=== PATIENT | male | born 1970 | race Caucasian/White ===

== ENCOUNTER → 2017-03-19 | Outpatient (CLI) | payer OTHER ==
[2013-06-02 10:30] VITALS: BP 201/130
== END ==
LOC: LAB 08:51
DX: E11.9 Type 2 diabetes mellitus without complications (principal); I10 Essential (primary) hypertension

== ENCOUNTER → 2018-03-11 | Outpatient (CLI) | payer OTHER ==
[2013-06-02 10:30] VITALS: BP 201/130
[2018-03-11 09:22] LABS: ALBUMIN 4.1 g/dL (3.5-5.0); BUN/CREATININE RATIO 11.5 (6.0-26.0); CALCIUM 9.3 mg/dL (8.4-10.2); POTASSIUM 4.5 mmol/L (3.6-5.0); TOTAL BILIRUBIN 0.6 mg/dL (0.2-1.3); TOTAL PROTEIN 7.9 g/dL (6.3-8.2)
== END ==
LOC: LAB 08:55
PROVIDERS: Family Medicine
DX: E11.9 Type 2 diabetes mellitus without complications (principal); I10 Essential (primary) hypertension

== ENCOUNTER → 2018-09-23 | Outpatient (CLI) | payer OTHER ==
[2013-06-02 10:30] VITALS: BP 201/130
== END ==
LOC: LAB 09:18
PROVIDERS: Family Medicine
DX: E11.9 Type 2 diabetes mellitus without complications (principal); E78.5 Hyperlipidemia, unspecified; R53.83 Other fatigue; T78.3XXA Angioneurotic edema, initial encounter; Z91.018 Allergy to other foods

== ENCOUNTER 2018-12-11 09:48 | Emergency (ER) | payer OTHER ==
[2018-12-11 10:23] LABS: EOS # 0.4 (0.04-0.40); HEMATOCRIT 42.9 % (42.0-52.0); HEMOGLOBIN 15.4 g/dL (13.5-18.0); LYMPH# 2.9 (1.50-4.00); MEAN CELL VOLUME 90 fl (78-100); MEAN CORPUSCULAR HEMOGLOBIN 32 pg (27-31); MEAN CORPUSCULAR HGB CONC 36 g/dL (33-37); MEAN PLATELET VOLUME 9.2 fl (7.4-10.4); MONO # 0.9 (0.20-0.80); NEU # 3.5 (1.40-6.50); PLATELET COUNT 245 K/mm3 (130-400); RED BLOOD COUNT 4.76 M/mm3 (4.20-5.60); RED CELL DISTRIBUTION WIDTH 12.6 % (11.5-14.5); WHITE BLOOD COUNT 7.8 K/mm3 (4.8-10.8)
[2018-12-11] MEDS ORDERED: GLUCOPHAGE1000 MG PO (10:24)
[2018-12-11] MEDS ORDERED: HYGROTON 2525 MG/TAB PO (10:24)
[2018-12-11] MEDS ORDERED: AMLODIPINE BESYL5 MG PO (10:24)
[2018-12-11] MEDS ORDERED: PROTONIX TR40 M1 PO (10:24)
[2018-12-11] MEDS ORDERED: METOPROLOL SUC100 M1 PO (10:24)
[2018-12-11 10:30] LABS: EOS % 5.5 % (0.0-4.0)
[2018-12-11 10:34] LABS: ALBUMIN 4.7 g/dL (3.5-5.0); CALCIUM 9.3 mg/dL (8.4-10.2); TOTAL PROTEIN 8.1 g/dL (6.3-8.2)
[2018-12-11 10:42] LABS: POTASSIUM 2.4 mmol/L (3.6-5.0)
[2018-12-11 10:48] LABS: CKMB ISOENZYME 3.5 ng/mL (0.6-3.5); TROPONIN-I < 0.03 ng/mL (0.00-0.06)
[2018-12-11 10:49] LABS: D-DIMER 0.27 mg/L FEU (0.15-0.50)
[2018-12-11 11:51] VITALS: BP 156/103
== END 2018-12-11 12:12 | disposition short-term general hospital (02) ==
LOC: ED 09:48
PROVIDERS: Physician Assistant
DX: E87.6 Hypokalemia (principal); R07.89 Other chest pain; K21.9 Gastro-esophageal reflux disease without esophagitis; E11.9 Type 2 diabetes mellitus without complications; I10 Essential (primary) hypertension; E78.5 Hyperlipidemia, unspecified; Z88.5 Allergy status to narcotic agent; Z91.018 Allergy to other foods; Z88.8 Allergy status to other drugs, medicaments and biological substances; Z98.890 Other specified postprocedural states
CPT/HCPCS: J3480

== ENCOUNTER → 2018-12-18 | Outpatient (CLI) | payer OTHER ==
[2018-12-11 11:51] VITALS: BP 156/103
[~2018-12-18] MED LIST: AMLODIPINE BESYL5 MG PO; GLUCOPHAGE1000 MG PO; HYGROTON 2525 MG/TAB PO; METOPROLOL SUC100 M1 PO; PROTONIX TR40 M1 PO
== END ==
LOC: RAD 11:46
DX: M19.012 Primary osteoarthritis, left shoulder (principal); M75.32 Calcific tendinitis of left shoulder; M54.2 Cervicalgia; R20.2 Paresthesia of skin

== ENCOUNTER 2018-12-23 08:53 | Outpatient (RCR) | payer OTHER | END 2018-12-23 09:00 | disposition home or self-care (01) | LOC: PT 08:53 | DX: M19.012 Primary osteoarthritis, left shoulder (principal); M75.32 Calcific tendinitis of left shoulder; M54.2 Cervicalgia; R29.898 Other symptoms and signs involving the musculoskeletal system; R20.2 Paresthesia of skin ==

== ENCOUNTER → 2018-12-23 | Outpatient (CLI) | payer OTHER ==
[2018-12-11 11:51] VITALS: BP 156/103
[2018-12-23 10:49] LABS: CALCIUM 9.3 mg/dL (8.4-10.2); POTASSIUM 4.9 mmol/L (3.6-5.0)
[2018-12-24 17:34] LABS: COMPLEMENT-C4 32 mg/dL (18-55)
== END ==
LOC: LAB 10:11
PROVIDERS: Allergy & Immunology
DX: T78.3XXD Angioneurotic edema, subsequent encounter (principal); E11.9 Type 2 diabetes mellitus without complications; R20.2 Paresthesia of skin; E87.6 Hypokalemia; E78.5 Hyperlipidemia, unspecified

== ENCOUNTER → 2019-02-10 | Outpatient (CLI) | payer OTHER ==
[2019-02-10 09:13] LABS: ALBUMIN 4.7 g/dL (3.5-5.0); POTASSIUM 4.3 mmol/L (3.6-5.0); TOTAL PROTEIN 7.8 g/dL (6.3-8.2)
== END ==
LOC: LAB 08:49
PROVIDERS: Family Medicine
DX: S43.432A Superior glenoid labrum lesion of left shoulder, initial encounter (principal); I10 Essential (primary) hypertension; E11.9 Type 2 diabetes mellitus without complications

== ENCOUNTER → 2019-04-14 | Outpatient (CLI) | payer OTHER | LOC: LAB 10:48 | DX: E11.9 Type 2 diabetes mellitus without complications (principal) ==

== ENCOUNTER → 2019-11-03 | Outpatient (CLI) | payer OTHER ==
[2019-11-03 09:35] LABS: HEMATOCRIT 46.7 % (42.0-52.0); HEMOGLOBIN 15.7 g/dL (13.5-18.0); MEAN CELL VOLUME 90 fl (78-100); MEAN CORPUSCULAR HEMOGLOBIN 30 pg (27-31); MEAN CORPUSCULAR HGB CONC 34 g/dL (33-37); MEAN PLATELET VOLUME 8.7 fl (7.4-10.4); PLATELET COUNT 228 K/mm3 (130-400); RED BLOOD COUNT 5.22 M/mm3 (4.20-5.60); RED CELL DISTRIBUTION WIDTH 13.2 % (11.5-14.5); WHITE BLOOD COUNT 6.6 K/mm3 (4.8-10.8)
[2019-11-03 09:38] LABS: POTASSIUM 4.4 mmol/L (3.5-5.1)
[2019-11-03 09:39] LABS: ALBUMIN 4.5 g/dL (3.5-5.0)
[2019-11-03 09:40] LABS: CALCIUM 9.8 mg/dL (8.3-10.5)
[2019-11-03 09:41] LABS: TOTAL PROTEIN 7.7 g/dL (6.4-8.3)
[2019-11-03 09:43] LABS: TOTAL BILIRUBIN 1.2 mg/dL (0.2-1.2)
[2019-11-03 09:48] LABS: LYMPHOCYTE 43 % (20-51); MONOCYTE 9 % (3-10); NEUTROPHILS 43 % (42-75)
== END ==
LOC: LAB 09:18
PROVIDERS: Family Medicine
DX: Z12.5 Encounter for screening for malignant neoplasm of prostate (principal); I10 Essential (primary) hypertension; E11.9 Type 2 diabetes mellitus without complications; E78.2 Mixed hyperlipidemia

== ENCOUNTER → 2021-01-24 | Outpatient (CLI) | payer OTHER ==
[2021-01-24 09:34] LABS: EOS # 0.3 (0.04-0.40); EOS % 4.3 % (0.0-4.0); HEMATOCRIT 46.5 % (42.0-52.0); HEMOGLOBIN 15.5 g/dL (13.5-18.0); LYMPH# 2.4 (1.50-4.00); MEAN CELL VOLUME 91 fl (78-100); MEAN CORPUSCULAR HEMOGLOBIN 30 pg (27-31); MEAN CORPUSCULAR HGB CONC 33 g/dL (33-37); MEAN PLATELET VOLUME 8.8 fl (7.4-10.4); MONO # 0.8 (0.20-0.80); NEU # 3.3 (1.40-6.50); PLATELET COUNT 229 K/mm3 (130-400); RED BLOOD COUNT 5.12 M/mm3 (4.20-5.60); RED CELL DISTRIBUTION WIDTH 12.8 % (11.5-14.5); WHITE BLOOD COUNT 6.8 K/mm3 (4.8-10.8)
[2021-01-24 09:42] LABS: POTASSIUM 4.2 mmol/L (3.5-5.1)
[2021-01-24 09:43] LABS: ALBUMIN 4.4 g/dL (3.5-5.0)
[2021-01-24 09:44] LABS: CALCIUM 9.5 mg/dL (8.3-10.5)
[2021-01-24 09:45] LABS: TOTAL PROTEIN 7.4 g/dL (6.4-8.3)
[2021-01-24 09:47] LABS: TOTAL BILIRUBIN 1.2 mg/dL (0.2-1.2)
== END ==
LOC: LAB 09:10
PROVIDERS: Family Medicine
DX: Z00.00 Encounter for general adult medical examination without abnormal findings (principal); E78.5 Hyperlipidemia, unspecified; E11.9 Type 2 diabetes mellitus without complications; Z86.19 Personal history of other infectious and parasitic diseases

== ENCOUNTER → 2022-03-13 | Outpatient (CLI) | payer OTHER ==
[2022-03-13 09:43] LABS: BASO # 0.03 K/mm3 (0.02-0.10); EOS # 0.18 K/mm3 (0.04-0.40); EOS % 2.7 % (0.0-4.0); HEMATOCRIT 47.9 % (42.0-52.0); HEMOGLOBIN 16.3 g/dL (13.5-18.0); MEAN CELL VOLUME 90 fl (78-100); MEAN CORPUSCULAR HEMOGLOBIN 31 pg (27-31); MEAN CORPUSCULAR HGB CONC 34 g/dL (33-37); MEAN PLATELET VOLUME 8.8 fl (7.4-10.4); MONO # 0.75 K/mm3 (0.20-0.80); NEU # 3.31 K/mm3 (1.40-6.50); PLATELET COUNT 222 K/mm3 (130-400); RED BLOOD COUNT 5.31 M/mm3 (4.20-5.60); RED CELL DISTRIBUTION WIDTH 12.4 % (11.5-14.5); WHITE BLOOD COUNT 6.7 K/mm3 (4.8-10.8)
[2022-03-13 11:13] LABS: ALBUMIN 4.5 g/dL (3.5-5.0); POTASSIUM 4.2 mmol/L (3.5-5.1)
[2022-03-13 11:14] LABS: CALCIUM 9.6 mg/dL (8.3-10.5)
[2022-03-13 11:15] LABS: TOTAL PROTEIN 7.7 g/dL (6.4-8.3)
[2022-03-13 11:17] LABS: TOTAL BILIRUBIN 0.9 mg/dL (0.2-1.2)
== END ==
LOC: LAB 09:28
PROVIDERS: Family Medicine
DX: Z00.00 Encounter for general adult medical examination without abnormal findings (principal); S49.91XA Unspecified injury of right shoulder and upper arm, initial encounter; E78.5 Hyperlipidemia, unspecified; E66.01 Morbid (severe) obesity due to excess calories; E11.9 Type 2 diabetes mellitus without complications; I10 Essential (primary) hypertension; M10.9 Gout, unspecified; G47.00 Insomnia, unspecified; Z72.0 Tobacco use